=== PATIENT | male | born 1980 | race Caucasian/White ===

== ENCOUNTER 2021-10-26 10:46 | Emergency (ER) | payer BC, SELFPAY ==
[2021-10-26 11:11] VITALS: BP 112/72; PULSE 95; RESP 16; TEMP 36.3; O2SAT 96
--- NOTE | 2021-10-26 11:13 | ECG_ITS ---
[facility] Test Date: 2021-10-26 Pat Name: Stanley Martin Department: Room: Gender: Male Decision Analyst: : 1980 Requested By: Kenrick Kidd Order Number: [id number] Fede MD: Damian Coppola M.D. Measurements Intervals [place] Rate: 79 P: 76 VA: 183 QRS: -71 QRSD: 125 T: 49 QT: 397 QTc: 456 Interpretive Statements SINUS RHYTHM POSSIBLE LEFT ATRIAL ENLARGEMENT [-0.1mV P-WAVE IN V1/V2] POSSIBLE RIGHT VENTRICULAR CONDUCTION DELAY [RSR (QR) IN V1/V2] LEFT ANTERIOR FASCICULAR BLOCK [QRS AXIS <= -45, QR IN I, RS IN II] No previous ECG available for comparison Electronically Signed On 10-26-2021 18:33:56 CDT by Damian Coppola M.D. [email or web address] medical center of smith countyApeniMEDsumma health [id number]
== END 2021-10-26 14:13 | disposition left against medical advice (07) ==
PROVIDERS: Emergency Provider Family Medicine
DX: Z53.21 Procedure and treatment not carried out due to patient leaving prior to being seen by health care provider (principal)
CPT/HCPCS: 93005